=== PATIENT | male | born 1955 | race Caucasian/White ===

== ENCOUNTER 2019-05-28 18:30 | Emergency (ER) | payer MEDICARE ==
[2019-05-28] MEDS ORDERED: DUONEB 0.5-3 MG/3 ml Neb IH ONE ×4 (18:43→22:12)
[2019-05-28] MEDS ORDERED: Sodium Chloride 0.9% 1000 ML 1,000 ML IV SCH (18:45)
[2019-05-28] MEDS ORDERED: Sodium Chloride 0.9% 1000 ML 1,000 ML ONE (18:47)
--- NOTE | 2019-05-28 18:54 | ERPHSYRPT ---
- History of Present Illness Time Seen by Provider: 05/28/19 18:52 Source: patient Exam Limitations: no limitations Patient Subjective Stated Complaint: short of breath, cough, chills for about 1 week Triage Nursing Assessment: Pt walked into the ER and sits in an chair slumped over, short of breath, tachycardic, hypertensive, wheezes throughout, 79-80% on room air, placed on 4L and went to 99%, denies pain Physician History: short of breath, cough, chills for about 1 week Timing/Duration: week(s) (1 week) Severity of Dyspnea-Max: moderate Severity of Dyspnea-Current: moderate Possible Cause: frequent episodes Modifying Factors: Improves With: albuterol inhaler Associated Symptoms: cough, fever, wheezing, productive cough International travel in last 2 weeks: No Allergies/Adverse Reactions: No Known Drug Allergies Allergy (Verified 05/28/19 18:43) Home Medications: Albuterol Sulfate Mdi [Proair Hfa MDI] 1 inh PO UD 05/28/19 [History] Fluticasone/Umeclidin/Vilanter [Trelegy Ellipta 100-62.5-25] 1 inh PO UD [History] Hydrocodone/Acetaminophen [Hydrocodone-Acetamin 10-325 mg] 1 tab PO QID [History] Megestrol Acetate [Megace Es] 625 mg PO DAILY 05/28/19 [History] Metoprolol Tartrate 50 mg [Lopressor 50 MG] 50 mg PO DAILY 05/28/19 [ History] Hx Tetanus, Diphtheria Vaccination/Date Given: No Hx Influenza Vaccination/Date Given: No Hx Pneumococcal Vaccination/Date Given: No Immunizations Up to Date: No - Review of Systems Constitutional: No Fever, No Chills Eyes: No Symptoms Ears, Nose, & Throat: No Symptoms Respiratory: Cough, Dyspnea, Dyspnea on Exertion (REN), Wheezing Cardiac: No Chest Pain, No Edema, No Syncope Abdominal/Gastrointestinal: No Abdominal Pain, No Nausea, No Vomiting, No Diarrhea Genitourinary Symptoms: No Dysuria Musculoskeletal: No Back Pain, No Neck Pain Skin: No Rash Neurological: No Dizziness, No Focal Weakness, No Sensory Changes Psychological: No Symptoms Endocrine: No Symptoms All Other Systems: Reviewed and Negative - Past Medical History Cardiac History: Hypertension Respiratory History: COPD, Pneumonia Other Medical History: carpal tunnel - Past Surgical History Past Surgical History: Yes Other Surgical History: carpal tunnel - Social History Smoking Status: Current every day smoker How long have you smoked: 55 years Exposure to second hand smoke: Yes Drug Use: none Patient Lives Alone: No - Nursing Vital Signs Nursing Vital Signs: Initial Vital Signs Pulse Rate 126 H 05/28/19 18:31 Respiratory Rate 20 05/28/19 18:31 Blood Pressure 207/130 05/28/19 18:31 O2 Sat by Pulse Oximetry 80 L 05/28/19 18:31 Pain Scale Pain Intensity 0 - Physical Exam General Appearance: moderate distress, alert Eye Exam: PERRL/EOMI Neck Exam: normal inspection, supple Respiratory Exam: diminished breath sounds, crackles/rales, rhonchi, wheezing Cardiovascular/Chest Exam: normal heart sounds, regular rate/rhythm Abdominal/Gastrointestinal Exam: soft, No tenderness, No distention, No mass Extremity Exam: non-tender, normal range of motion, normal inspection, no calf tenderness, no pedal edema Neurologic Exam: alert, oriented x 3, cooperative, senior microsoft consultant II-XII nml as tested, sensation nml, No motor deficits Skin Exam: normal color, warm, No dry SpO2 Interpretation: hypoxic SpO2: 80 O2 Delivery: Non-rebreather - Course Nursing assessment & vital signs reviewed: Yes - Radiology Exams Chest X-ray Interpretation: Reviewed by me (severe COPD changes) Ordered Tests: Active Orders 24 hr Category Date Time Status Olericulture Teacher STAT Care 05/28/19 18:46 Active EKG-ER Only STAT Care 05/28/19 18:46 Active IV Insertion STAT Care 05/28/19 18:46 Active Oxygen-ED Only Nasal Cannula 3 lpm Care 05/28/19 18:44 Active CHEST 1 VIEW (PORTABLE) Stat Exams 05/28/19 18:44 Completed CBC W DIFF Stat Lab 05/28/19 19:04 Completed CMP Stat Lab 05/28/19 19:04 Completed Manual Differential NC Stat Lab 05/28/19 19:04 Completed NT PRO BNP Stat Lab 05/28/19 19:04 Completed Respiratory Therapy Assessment DAILY RT 05/28/19 18:49 Completed Medication Summary Discontinued Medications Generic Name Dose Route Start Last Admin Trade Name Freq PRN Reason Stop Dose Admin Albuterol/Ipratropium Confirm 05/28/19 18:43 Duoneb 0.5-3 Mg/3 Ml Neb Administered 05/28/19 18:44 Dose 3 ml IH .STK-MED ONE Albuterol/Ipratropium 3 ml 05/28/19 18:44 05/28/19 18:48 Duoneb 0.5-3 Mg/3 Ml Neb IH 05/28/19 18:45 3 ml STAT ONE Administration Albuterol/Ipratropium 6 ml 05/28/19 22:09 05/28/19 22:19 Duoneb 0.5-3 Mg/3 Ml Neb IH 05/28/19 22:10 6 ml STAT ONE Administration Albuterol/Ipratropium Confirm 05/28/19 22:12 Duoneb 0.5-3 Mg/3 Ml Neb Administered 05/28/19 22:13 Dose 6 ml IH .STK-MED ONE Diltiazem HCl 10 mg 05/28/19 18:55 05/28/19 19:00 Cardizem Iv 50 Mg/10 Ml IV 05/28/19 18:56 10 mg STAT ONE Administration Diltiazem HCl Confirm 05/28/19 18:58 Cardizem Iv 50 Mg/10 Ml Administered 05/28/19 18:59 Dose 50 mg IV .STK-MED ONE Sodium Chloride 1,000 mls @ 50 mls/hr 05/28/19 18:45 05/28/19 18:50 Sodium Chloride 0.9% 1000 Ml IV 06/27/19 18:44 50 mls/hr .Q20H HEBER Administration Ceftriaxone Sodium/Dextrose 1 g in 50 mls @ 100 mls/hr 05/28/19 19:15 19:58 Rocephin 1 Gm-D5w 50 Ml Bag IV 05/28/19 19:44 Infused STAT STA Infusion Azithromycin 500 mg in 250 mls @ 250 mls/hr 05/28/19 19:15 05/28/19 20:29 Zithromax 500 Mg/ 250 Ml Nacl Premix IV 05/28/19 20:14 Infused STAT STA Infusion Azithromycin Confirm 05/28/19 19:21 Zithromax 500 Mg/ 250 Ml Nacl Premix Administered 05/28/19 19:22 Dose 500 mg in 250 mls @ ud IV .STK-MED ONE Ceftriaxone Sodium/Dextrose Confirm 05/28/19 19:21 Rocephin 1 Gm-D5w 50 Ml Bag Administered 05/28/19 19:22 Dose 1 g in 50 mls @ ud IV .STK-MED ONE Sodium Chloride Confirm 05/28/19 18:47 Sodium Chloride 0.9% 1000 Ml Administered 05/28/19 18:48 Dose 1,000 mls @ ud .ROUTE .STK-MED ONE Methylprednisolone Sodium Succinate 125 mg 05/28/19 19:15 05/28/19 19:28 Solu-Medrol 125 Mg IV 05/28/19 19:16 125 mg STAT ONE Administration Methylprednisolone Sodium Succinate Confirm 05/28/19 19:21 Solu-Medrol 125 Mg Administered 05/28/19 19:22 Dose 125 mg .ROUTE .STK-MED ONE Lab/Rad Data: Laboratory Result Diagrams 05/28/19 19:04 05/28/19 19:04 Laboratory Results 05/28/19 05/28/19 05/28/19 Range/Units Unknown 19:04 19:04 WBC 8.4 (4.0-10.5) K/mm3 RBC 5.43 (4.1-5.6) M/mm3 Hgb 17.7 (12.5-18.0) gm/dl Hct 53.5 H (42-50) % MCV 98.5 (78-100) fl MCH 32.6 H (26-32) pg MCHC 33.1 (32-36) g/dl RDW 14.9 H (11.5-14.0) % Plt Count 242 (150-450) K/mm3 MPV 9.4 (7.5-11.0) fl Segmented Neutrophils 60 (36.-66.) % Lymphocytes (Manual) 38 (24-44) % Monocytes (Manual) 2 (0.0-12.0) % Toxic Granulation RARE Platelet Estimate NORMAL (NORMAL) RBC Morphology NORMAL Sodium 139 (137-145) mmol/L Potassium 3.9 (3.5-5.1) mmol/L Chloride 100 (98-107) mmol/L Carbon Dioxide 31 H (22-30) mmol/L Anion Gap 12.2 (5-15) MEQ/L BUN 22 H (9-20) mg/dL Creatinine 0.70 (0.66-1.25) mg/dL Estimated GFR > 60.0 ML/MIN Glucose 126 H (74-106) mg/dL Calcium 9.8 (8.4-10.2) mg/dL Total Bilirubin 0.40 (0.2-1.3) mg/dL AST 35 (17-59) U/L ALT 27 (0-50) U/L Alkaline Phosphatase 77 (38-126) U/L NT-Pro-B Natriuret Pep 180 (0-900) pg/mL Serum Total Protein 8.5 H (6.3-8.2) g/dL Albumin 4.5 (3.5-5.0) g/dL Influenza Type A Ag NEGATIVE (NEGATIVE) Influenza Type B Ag NEGATIVE (NEGATIVE) RSV (PCR) POSITIVE (Negative) - Progress Progress: improved Air Movement: fair Progress Note: 05/28/19 20:45 Patient is moderate to severe hypoxic on room air. Patient oxygen saturation is in low 70s. After Oxymizer 35%. His oxygen saturation 84%. Patient does not want to stay in hospital, but he agreed that he will use his oxygen at home as well as he will use nebulizer. We will make an arrangements for home oxygen 3 L nasal cannula as well as nebulizer treatment with DuoNeb nebulizer every 6 hours. Blood Culture(s) Obtained: No Antibiotics given: Yes Counseled pt/family regarding: lab results, diagnosis, need for follow-up, rad results, smoking cessation - Departure Departure Disposition: Home (with home oxygen) Clinical Impression: Hypoxemia requiring supplemental oxygen, COPD with hypoxia, Chronic respiratory failure with hypoxia and hypercapnia, RSV bronchitis, Acute exacerbation of chronic obstructive airways disease Condition: Stable Critical Care Time: Yes Critical Care Time(excluding separately billable procedures): Critical 30-74 mins Referrals: KEN HURLEY [Primary Care Provider] - Follow Up with PCP/3 days Instructions: Chronic Obstructive Pulmonary Disease Additional Instructions: Discharge/Care Plan KULDIP COVARRUBIAS was seen on 05/29/19 in the Emergency Room. The patient was counseled regarding Diagnosis,Lab results, Imaging studies, need for follow up and when to return to the Emergency Room. Prescriptions given: Discharge Note I have spoken with the patient and/or caregivers. I have explained the patient' s condition, diagnosis and treatment plan based on the information available to me at this time. I have answered the patient's and/or caregiver's questions and addressed any concerns. The patient and/or caregivers have as good understanding of the patient's diagnosis, condition and treatment plan as can be expected at this point. The vital signs have been stable. The patient's condition is stable and appropriate for discharge from the emergency department. The patient will pursue further outpatient evaluation with the primary care physician or other designated or consulting physician as outlined in the discharge instructions. The patient and/or caregivers are agreeable to this plan of care and follow-up instructions have been explained in detail. The patient and/or caregivers have received these instruction. The patient/and or caregivers are aware that any significant change in condition or worsening of symptoms should prompt an immediate return to this or the closest emergency department or call 911. KULDIP COVARRUBIAS was seen on 05/29/19 n the Emergency Room. At that time you were treated for an emergent condition, during your visit Laboratory, Radiology and/ or other procedures may have been ordered. It is very important that you follow- up with your Primary Care Physician KEN HURLEY within the next 24-48 hours to review your Emergency Room visit and the final results of testing that was ordered. Some test results such as Urine Cultures, Blood Cultures, and other cultures if ordered will not be finalized for 24-48 hours. If you do not have a Primary Care Provider please call the medical records department at [phone] ext [phone] to obtain a copy of your results or you may sign into our patient portal to obtain these results by visiting us @ [email or web address] and completing the following steps: 1. Click on the Patient Portal link 2. Click the Patient Self Enrollment Link to complete the enrollment form and entering your 3. Once the enrollment form is completed you will receive an email with a temporary ID and password at the email address you provided. 4. Next choose a user name and password. Your user name must be at least 4 characters long and your password must be at least 4 characters long. 5. Choose a security question from the list and provide your answer to the question. If you already have signed into the Health Portal you may access your Health Care Information 15/12 by the following steps: 1. Login to our website @ [email or web address] 2. Enter your original user name and password. FAQS [facility] Health Portal is an online tool that contains your Lab Results, Radiology Reports, Visit History, Discharge Instructions and Health Summary Lab and Radiology Results will not be available for 72 hours on the portal. The Portal is a secure site, passwords are encryted and URLs are re-written so they cannot be copied and pasted. You and authorized family members are the only ones who can access your Portal. Also there is a timeout feature that protects your information if you leave the Portal page open. If you have technical difficulty please use the Contact Us link on the page this will allow you to submit any questions you have regarding the Portal or you may contact the Medical Record Department at [phone]. Prescriptions: Albuterol/Ipratropium 3ml Neb* [DUONEB 0.5-3 MG/3 ml Neb] 3 ml IH QID #120 ampul.neb Cephalexin Mh 500 mg [Keflex 500 mg] 500 mg PO Q6H #40 capsule Methylprednisolone Packet [Medrol Dosepack] 4 mg PO UD #30 packet
[2019-05-28] MEDS ORDERED: Cardizem IV 50 MG/10 ML IV ONE ×2 (18:55→18:58)
[2019-05-28] MEDS ORDERED: Zithromax 500 MG/ 250 ML NaCl Premix 500 MG/250 ML IVPB IV STA (19:15)
[2019-05-28] MEDS ORDERED: solu-MEDROL 125 MG IV ONE (19:15)
[2019-05-28] MEDS ORDERED: ROCEPHIN 1 Gm-D5w 50 ml Bag** 1 G/50 ML IVPB IV STA (19:15)
[2019-05-28] MEDS ORDERED: Zithromax 500 MG/ 250 ML NaCl Premix 500 MG/250 ML IVPB IV ONE (19:21)
[2019-05-28] MEDS ORDERED: ROCEPHIN 1 Gm-D5w 50 ml Bag** 1 G/50 ML IVPB IV ONE (19:21)
[2019-05-28] MEDS ORDERED: solu-MEDROL 125 MG ONE (19:21)
[2019-05-28 19:30] LABS: Hematocrit 53.5 % (42-50); Hemoglobin 17.7 gm/dl (12.5-18.0); Mean Cell Volume 98.5 fl (78-100); Mean Corpuscular Hemoglobin 32.6 pg (26-32); Mean Corpuscular Hgb Concent. 33.1 g/dl (32-36); Mean Platelet Volume 9.4 fl (7.5-11.0); Platelet Count 242 K/mm3 (150-450); Red Blood Count 5.43 M/mm3 (4.1-5.6); Red Cell Distribution Width 14.9 % (11.5-14.0); White Blood Count 8.4 K/mm3 (4.0-10.5)
[2019-05-28 19:43] LABS: ALBUMIN 4.5 g/dL (3.5-5.0); ALKALINE PHOSPHATASE 77 U/L (38-126); ANION GAP 12.2 MEQ/L (5-15); BLOOD UREA NITROGEN 22 mg/dL (9-20); CHLORIDE 100 mmol/L (98-107); Calcium 9.8 mg/dL (8.4-10.2); Carbon Dioxide 31 mmol/L (22-30); Glucose 126 mg/dL (74-106); NT PRO BNP 180 pg/mL (0-900); Potassium 3.9 mmol/L (3.5-5.1); SGOT/AST 35 U/L (17-59); SGPT/ALT 27 U/L (0-50); SODIUM 139 mmol/L (137-145); Total Protein 8.5 g/dL (6.3-8.2)
--- NOTE | 2019-05-28 20:12 | XRAY ---
Indication: Cough and short of breath. COPD. Comparison: None Portable chest demonstrates COPD with a few tiny calcified granulomas. No focal infiltrate, consolidation, or large effusion. Heart and mediastinal structures within normal limits. Bony thorax intact with mild osteopenia and degenerative changes. Impression: COPD and evidence for old granulomatous disease. Negative for acute pneumonic process or CHF.
[2019-05-28 20:49] LABS: INFLUENZA A NEGATIVE (NEGATIVE); INFLUENZA B NEGATIVE (NEGATIVE); RESPIRATORY SYNCTIAL VIRUS POSITIVE (Negative)
[2019-05-28 21:15] VITALS: BP 153/107; PULSE 98
[2019-05-28 22:50] LABS: Lymphocytes 38 % (24-44); Monocyte 2 % (0.0-12.0); Neutrophils 60 % (36.-66.); Platelet Estimate NORMAL (NORMAL); Total Cells Counted 100; Toxic Granulation RARE
[2019-05-29 09:03] VITALS: O2SAT 80
== END 2019-05-28 21:35 | disposition home or self-care (01) ==
LOC: ED 18:30
DX: R09.02 Hypoxemia (principal); Z99.81 Dependence on supplemental oxygen; J44.9 Chronic obstructive pulmonary disease, unspecified; J96.12 Chronic respiratory failure with hypercapnia; J96.11 Chronic respiratory failure with hypoxia; J20.5 Acute bronchitis due to respiratory syncytial virus
CPT/HCPCS: 36000; 36415; 71045; 80053; 83880; 85025; 87631; 93005; 93041; 94640; 96365; 96368; 96374; 96375; 99284; 99291; J0456; J0696; J2930; A9270-GY

== ENCOUNTER 2021-03-12 09:55 | Day surgery (SDC) | payer MEDICARE ==
[~2021-03-12 09:55] MED LIST: Ak-Dilate OPHTHALMIC*** 1.065 ML, Cyclogyl 1% OPHTH SOL 5 ML 1.065 ML, GATIFLOXACIN 0.5... OP ONE; BETADINE 5% OPHTHALMIC 30 ML OP ONE; Lactated Ringers 1,000 ML IV SCH; NON-FORMULARY ITEM OP ONE; TETRACAINE 0.5% STERI-UNIT SOL OP ONE; cefUROXime sodium 0.005 GM in Sodium Chloride Flush 30 ML*** 0.5 ML IJ SCH
[2021-03-12] MEDS ORDERED: Epinephrine Preservative Free 1 MG/ML IJ ONE (09:56)
[2021-03-12] MEDS ORDERED: LIDOCAINE HCL 1% 50 MG/5 ML VL PF IJ ONE (09:56)
[2021-03-12] MEDS ORDERED: Zofran 4 MG/2 ML VIAL IV PRN (11:00)
[2021-03-12] MEDS ORDERED: ACETAZOLAMIDE 250 MG TABLET PO ONE (11:00)
[2021-03-12] MEDS ORDERED: Lactated Ringers 1,000 ML IV ONE (11:42)
[2021-03-12] MEDS ORDERED: DIPRIVAN 200 MG/20 ML IV ONE (12:51)
[2021-03-12] MEDS ORDERED: Versed 2 MG/2 ML Injection ONE (12:51)
[2021-03-12] MEDS ORDERED: SUBLIMAZE 100 MCG/2 ML ONE (12:51)
[2021-03-12] MEDS ORDERED: ROBINUL ONE (12:52)
[2021-03-12 14:21] VITALS: BP 145/89; PULSE 78; O2SAT 97
== END 2021-03-12 14:35 | disposition home or self-care (01) ==
LOC: SDC 09:55
PROVIDERS: ATTEND Ophthalmology
DX: H25.811 Combined forms of age-related cataract, right eye (principal); Z79.899 Other long term (current) drug therapy
CPT/HCPCS: C1780; J0171; J2001; J2250; J2704; J3010; A9270-GY

== ENCOUNTER 2022-03-20 15:52 | Emergency (ER) | payer MEDICARE ==
[2022-03-20 17:25] LABS: INFLUENZA A NEGATIVE (NEGATIVE); INFLUENZA B NEGATIVE (NEGATIVE); RESPIRATORY SYNCTIAL VIRUS NEGATIVE (Negative); SARS-CoV-2 Xpert Express NEGATIVE (NEGATIVE)
[2022-03-20] MEDS ORDERED: DUONEB 0.5-3 MG/3 ml Neb IH ONE ×2 (18:21→18:25)
--- NOTE | 2022-03-20 18:27 | ERPHSYRPT ---
- History of Present Illness Source: patient Exam Limitations: no limitations Patient Subjective Stated Complaint: Patient came in c/o shortness of breath x 6 weeks. Stated that he was at Dr Hurley's office and oxygen was 72% on 4L. Triage Nursing Assessment: Patient A&Ox3, Skin is CDI PW some bruising noted on right forearm. Patient breathing is easy but tachypneic. Expiratory wheeze throughout with bilater crackles in the bases. Patient baseline o2 is 4L. Physician History: 67 yo wm who is 3L O2 dep at home presents from PCP office w low sats. Pt states that he has been having increasing dyspnea x 6 wks which is worse upon exertion. He denies worsening cough/fever/chest pain/N/V/D/melena/hematochezia. Pt still smokes 1ppd. Timing/Duration: other (6wks/worse today) Activities at Onset: rest Severity of Dyspnea-Max: severe Severity of Dyspnea-Current: moderate Possible Cause: frequent episodes Modifying Factors: Improves With: activity Associated Symptoms: denies symptoms Allergies/Adverse Reactions: No Known Drug Allergies Allergy (Verified 03/12/21 10:33) Home Medications: Albuterol Sulfate Mdi [Proair Hfa MDI] 1 inh PO Q4HPRN PRN 05/28/19 [History] Fluticasone/Umeclidin/Vilanter [Trelegy Ellipta 100-62.5-25] 1 inh PO UD 05/28/19 [History] Hydrocodone/Acetaminophen [Hydrocodone-Acetamin 10-325 mg] 1 tab PO QIDPRN PRN 05/28/19 [History] Rosuvastatin Calcium [Crestor] 5 mg PO DAILY 03/07/21 [History] Tamsulosin HCl 0.4 mg [Flomax 0.4 MG] 0.4 mg PO DAILY 03/07/21 [History] Tolterodine Tartrate [Tolterodine Tartrate ER] 2 mg PO DAILY 03/07/21 [History] Hx Tetanus, Diphtheria Vaccination/Date Given: No Hx Influenza Vaccination/Date Given: No Hx Pneumococcal Vaccination/Date Given: No Immunizations Up to Date: No Travel Risk - International Travel Have you traveled outside of the country in past 3 weeks: No - Coronavirus Screening Symptoms: Shortness of Breath Close contact with a COVID-19 positive Pt in past 14-21 Days: No - Vaccine Status Have you recieved a Covid-19 vaccination: Yes Line Supply: Moderna - Vaccination Dates Date of 2cond Vaccination (if applicable): 06/26/2020 - Review of Systems Constitutional: No Symptoms, Malaise, Weakness Eyes: No Symptoms Ears, Nose, & Throat: No Symptoms Respiratory: No Symptoms, Dyspnea, Dyspnea on Exertion (REN) Cardiac: No Symptoms Abdominal/Gastrointestinal: No Symptoms Genitourinary Symptoms: No Symptoms Musculoskeletal: No Symptoms Skin: No Symptoms Neurological: No Symptoms Psychological: No Symptoms Endocrine: No Symptoms Hematologic/Lymphatic: No Symptoms Immunological/Allergic: No Symptoms - Past Medical History Pertinent Past Medical History: Yes Neurological History: No Pertinent History ENT History: Cataracts Cardiac History: Hypertension Respiratory History: COPD, Lung Cancer, Pneumonia Endocrine Medical History: No Pertinent History Musculoskeletal History: No Pertinent History GI Medical History: No Pertinent History History: No Pertinent History Psycho-Social History: No Pertinent History Male Reproductive Disorders: No Pertinent History Other Medical History: carpal tunnel - Past Surgical History Past Surgical History: Yes Neuro Surgical History: No Pertinent History Cardiac: No Pertinent History Respiratory: No Pertinent History Gastrointestinal: No Pertinent History Genitourinary: Other Musculoskeletal: No Pertinent History Male Surgical History: No Pertinent History Other Surgical History: carpal tunnel, urolift with Dr. Velez at [facility] on 01/18/21 - Social History Smoking Status: Current every day smoker How long have you smoked: 60 years Exposure to second hand smoke: No Drug Use: none Patient Lives Alone: No - Nursing Vital Signs Nursing Vital Signs: Initial Vital Signs Temperature 98 F 03/20/22 15:52 Pulse Rate 108 H 03/20/22 15:52 Respiratory Rate 30 H 03/20/22 15:52 O2 Sat by Pulse Oximetry 87 L 03/20/22 15:52 Pain Scale Pain Intensity 0 Low sats/Tachy/Tachypneic - Physical Exam General Appearance: no apparent distress Eye Exam: PERRL/EOMI, eyes nml inspection Ears, Nose, Throat Exam: hearing grossly normal, normal ENT inspection, normal pharynx Neck Exam: normal inspection, non-tender, supple, full range of motion, No Brudzinski, No Kernig's, No meningismus, No carotid bruit, No JVD Respiratory Exam: prolonged expirations, wheezing (Scattered wheezes B) Cardiovascular/Chest Exam: tachycardia, No murmur Abdominal/Gastrointestinal Exam: soft, normal bowel sounds, No tenderness Extremity Exam: non-tender, normal range of motion, normal inspection, normal capillary refill, no calf tenderness, no pedal edema Peripheral Pulses Exam: carotid (R): 2+, carotid (L): 2+ Neurologic Exam: alert, oriented x 3, cooperative, instruction librarian II-XII nml as tested, normal mood/affect, nml cerebellar function, nml station & gait, sensation nml, No motor deficits, No sensory deficit Skin Exam: normal color, warm, dry, No rash Lymphatic Exam: No adenopathy SpO2 Interpretation: normal SpO2: 96 O2 Delivery: Room Air - Course Nursing assessment & vital signs reviewed: Yes EKG Interpreted by Me: RATE (NSR/Rate96/RBBB/LAFB/Prolonged QTc/Occ PVC/Flat Twaves) - Radiology Exams Chest X-ray Interpretation: Interpreted by me (COPD) Ordered Tests: Active Orders 24 hr Category Date Time Status AMA [Release AMA] OM.NOW Care 03/20/22 20:17 Completed EKG-ER Only STAT Care 03/20/22 18:20 Completed CHEST 1 VIEW (PORTABLE) Stat Exams 03/20/22 18:20 Taken CBC W DIFF Stat Lab 03/20/22 18:31 Completed CMP Stat Lab 03/20/22 18:31 Completed Lactic Acid Stat Lab 03/20/22 18:21 Completed NT PRO BNP Stat Lab 03/20/22 18:31 Completed PROTIME WITH INR Stat Lab 03/20/22 18:31 Completed PTT Stat Lab 03/20/22 18:31 Completed TROPONIN Q4H Lab 03/20/22 18:31 Completed Respiratory Therapy Assessment DAILY RT 03/20/22 18:34 Completed Medication Summary Discontinued Medications Generic Name Dose Route Start Last Admin Trade Name Freq PRN Reason Stop Dose Admin Albuterol/Ipratropium 3 ml 03/20/22 18:21 03/20/22 18:27 Ipratropium/Albuterol Sulfate 3 Ml Ampul.Neb IH 03/20/22 18:22 3 ml STAT ONE Administration Albuterol/Ipratropium Confirm 03/20/22 18:25 Ipratropium/Albuterol Sulfate 3 Ml Ampul.Neb Administered 03/20/22 18:26 Dose 3 ml IH .STK-MED ONE Methylprednisolone Sodium 0 mg 03/20/22 19:59 03/20/22 20:02 Succinate 125 mg/ Sterile IV 03/20/22 20:00 125 mg Water 2 ml STAT ONE Administration Sodium Chloride 1,000 mls @ 999 mls/hr 03/20/22 19:49 03/20/22 19:50 Sodium Chloride 0.9% 1000 Ml IV 03/20/22 20:49 999 mls/hr .Q1H1M STA Administration Sodium Chloride Confirm 03/20/22 19:48 Sodium Chloride 0.9% 1000 Ml Administered 03/20/22 19:49 Dose 1,000 mls @ ud .ROUTE .STK-MED ONE Methylprednisolone Sodium Succinate Confirm 03/20/22 20:01 Methylprednis Sod Succ 125 Mg/2 Ml Vial Administered 03/20/22 20:02 Dose 125 mg .ROUTE .STK-MED ONE Sterile Water Confirm 03/20/22 20:01 Water For Injection,Sterile 10 Ml Vial Administered 03/20/22 20:02 Dose 10 ml IJ .STK-MED ONE Lab/Rad Data: Laboratory Result Diagrams 03/20/22 18:31 03/20/22 18:31 Laboratory Results 03/20/22 03/20/22 03/20/22 Range/Units 18:31 18:31 18:31 WBC (4.0-10.5) x10^3/uL RBC (4.1-5.6) x10^6/uL Hgb (12.5-18.0) g/dL Hct (42-50) % MCV (78-100) fL MCH (26-32) pg MCHC (32-36) g/dL RDW (11.5-14.0) % Plt Count (150-450) x10^3/uL MPV (7.5-11.0) fL Gran % (36.0-66.0) % Immature Gran % (Auto) (0.00-0.4) % Nucleat RBC Rel Count (0.00-0.1) % Eos # (Auto) (0-0.5) x10^3/uL Immature Gran # (Auto) (0.00-0.03) x10^3u/L Absolute Lymphs (auto) (1.0-4.6) x10^3/uL Absolute Monos (auto) (0.0-1.3) x10^3/uL Absolute Nucleated RBC (0.00-0.01) x10^3u/L Lymphocytes % (24.0-44.0) % Monocytes % (0.0-12.0) % Eosinophils % (0.00-5.0) % Basophils % (0.0-0.4) % Absolute Granulocytes (1.4-6.9) x10^3/uL Basophils # (0-0.4) x10^3/uL PT 10.5 (9.4-12.5) SECONDS INR 0.99 (0.8-3.0) APTT 22.5 L (25.1-36.5) SECONDS Sodium 141 (137-145) mmol/L Potassium 4.2 (3.5-5.1) mmol/L Chloride 102 (98-107) mmol/L Carbon Dioxide 32 H (22-30) mmol/L Anion Gap 11.8 (5-15) MEQ/L BUN 20 (9-20) mg/dL Creatinine 0.85 (0.66-1.25) mg/dL Estimated GFR > 60.0 ML/MIN Glucose 138 H (74-106) mg/dL Lactic Acid (0.4-2.0) Calcium 9.4 (8.4-10.2) mg/dL Total Bilirubin 0.70 (0.2-1.3) mg/dL AST 27 (17-59) U/L ALT 23 (0-50) U/L Alkaline Phosphatase 61 (38-126) U/L Troponin I < 0.012 (0.000-0.034) ng/mL NT-Pro-B Natriuret Pep 453 (0-900) pg/mL Serum Total Protein 8.2 (6.3-8.2) g/dL Albumin 4.8 (3.5-5.0) g/dL Influenza Type A Ag (NEGATIVE) Influenza Type B Ag (NEGATIVE) RSV (PCR) (Negative) SARS-CoV-2 (PCR) (NEGATIVE) 03/20/22 03/20/22 03/20/22 Range/Units 18:31 18:21 16:00 WBC 7.7 (4.0-10.5) x10^3/uL RBC 4.95 (4.1-5.6) x10^6/uL Hgb 16.3 (12.5-18.0) g/dL Hct 50.4 H (42-50) % MCV 101.8 H (78-100) fL MCH 32.9 H (26-32) pg MCHC 32.3 (32-36) g/dL RDW 13.4 (11.5-14.0) % Plt Count 327 (150-450) x10^3/uL MPV 9.4 (7.5-11.0) fL Gran % 88.8 H (36.0-66.0) % Immature Gran % (Auto) 0.5 H (0.00-0.4) % Nucleat RBC Rel Count 0.0 (0.00-0.1) % Eos # (Auto) 0 (0-0.5) x10^3/uL Immature Gran # (Auto) 0.04 H (0.00-0.03) x10^3u/L Absolute Lymphs (auto) 0.56 L (1.0-4.6) x10^3/uL Absolute Monos (auto) 0.26 (0.0-1.3) x10^3/uL Absolute Nucleated RBC 0.00 (0.00-0.01) x10^3u/L Lymphocytes % 7.3 L (24.0-44.0) % Monocytes % 3.4 (0.0-12.0) % Eosinophils % 0.0 (0.00-5.0) % Basophils % 0.0 (0.0-0.4) % Absolute Granulocytes 6.80 (1.4-6.9) x10^3/uL Basophils # 0 (0-0.4) x10^3/uL PT (9.4-12.5) SECONDS INR (0.8-3.0) APTT (25.1-36.5) SECONDS Sodium (137-145) mmol/L Potassium (3.5-5.1) mmol/L Chloride (98-107) mmol/L Carbon Dioxide (22-30) mmol/L Anion Gap (5-15) MEQ/L BUN (9-20) mg/dL Creatinine (0.66-1.25) mg/dL Estimated GFR ML/MIN Glucose (74-106) mg/dL Lactic Acid 2.5 H (0.4-2.0) Calcium (8.4-10.2) mg/dL Total Bilirubin (0.2-1.3) mg/dL AST (17-59) U/L ALT (0-50) U/L Alkaline Phosphatase (38-126) U/L Troponin I (0.000-0.034) ng/mL NT-Pro-B Natriuret Pep (0-900) pg/mL Serum Total Protein (6.3-8.2) g/dL Albumin (3.5-5.0) g/dL Influenza Type A Ag NEGATIVE (NEGATIVE) Influenza Type B Ag NEGATIVE (NEGATIVE) RSV (PCR) NEGATIVE (Negative) SARS-CoV-2 (PCR) NEGATIVE (NEGATIVE) - Progress Progress: improved Progress Note: 03/20/22 20:00 Pt w Duoneb x 1 w mild improvement 1L NS bolus 125mg Iv Solumedrol Pt refuses admit at this time. Risks explained to pt including respiratory failure/ 03/20/22 21:24 Pt still requiring 5.5L O2 NC instead of his usual 3L O2 NC before leaving AMA Counseled pt/family regarding: lab results, diagnosis, need for follow-up, rad results - Departure Departure Disposition: AMA Clinical Impression: Acute exacerbation of chronic obstructive airways disease Condition: Stable Critical Care Time: Yes Critical Care Time(excluding separately billable procedures): Critical 30-74 mins Referrals: KEN HURLEY [Primary Care Provider] - Follow up/PCP as directed Instructions: Chronic Obstructive Pulmonary Disease, Shortness of Breath (Dyspnea) (DC), Exacerbation of COPD (DC) Additional Instructions: Quit smoking Follow up with your family MD and/or tool and die designer Return to ER as needed Prescriptions: Prednisone 10 mg [Deltasone 10 mg] 10 mg PO BID 5 Days #10 tablet Doxycycline Monohydrate 100 mg PO BID #14 cap
[2022-03-20 18:34] LABS: Basophil (Absolute #) 0 x10^3/uL (0-0.4); Eosinophil (Absolute #) 0 x10^3/uL (0-0.5); Hematocrit 50.4 % (42-50); Hemoglobin 16.3 g/dL (12.5-18.0); Lymphocyte (Absolute #) 0.56 x10^3/uL (1.0-4.6); Lymphocytes % 7.3 % (24.0-44.0); Mean Cell Volume 101.8 fL (78-100); Mean Corpuscular Hemoglobin 32.9 pg (26-32); Mean Corpuscular Hgb Concent. 32.3 g/dL (32-36); Mean Platelet Volume 9.4 fL (7.5-11.0); Monocyte (Absolute #) 0.26 x10^3/uL (0.0-1.3); Monocytes % 3.4 % (0.0-12.0); Neutrophil % 88.8 % (36.0-66.0); Platelet Count 327 x10^3/uL (150-450); Red Blood Count 4.95 x10^6/uL (4.1-5.6); Red Cell Distribution Width 13.4 % (11.5-14.0); White Blood Count 7.7 x10^3/uL (4.0-10.5)
[2022-03-20 18:42] LABS: ALBUMIN 4.8 g/dL (3.5-5.0); ALKALINE PHOSPHATASE 61 U/L (38-126); ANION GAP 11.8 MEQ/L (5-15); BLOOD UREA NITROGEN 20 mg/dL (9-20); CHLORIDE 102 mmol/L (98-107); Calcium 9.4 mg/dL (8.4-10.2); Carbon Dioxide 32 mmol/L (22-30); Creatinine 1 0.85 mg/dL (0.66-1.25); EST GLOMERULAR FILTRATION RATE > 60.0 ML/MIN; Glucose 138 mg/dL (74-106); INR 0.99 (0.8-3.0); NT PRO BNP 453 pg/mL (0-900); PROTIME 10.5 SECONDS (9.4-12.5); PTT 22.5 SECONDS (25.1-36.5); Potassium 4.2 mmol/L (3.5-5.1); SGOT/AST 27 U/L (17-59); SGPT/ALT 23 U/L (0-50); SODIUM 141 mmol/L (137-145); Total Protein 8.2 g/dL (6.3-8.2)
[2022-03-20] MEDS ORDERED: Sodium Chloride 0.9% 1000 ML 1,000 ML ONE (19:48)
[2022-03-20] MEDS ORDERED: Sodium Chloride 0.9% 1000 ML 1,000 ML IV STA (19:49)
[2022-03-20 19:58] VITALS: O2SAT 96
[2022-03-20] MEDS ORDERED: solu-MEDROL 125 MG, Sterile H2O 10 ml 2 ML IV ONE ×2 (19:59)
[2022-03-20] MEDS ORDERED: solu-MEDROL ONE (20:01)
[2022-03-20] MEDS ORDERED: Sterile H2O 10 ml IJ ONE (20:01)
[2022-03-20 20:12] VITALS: BP 151/92; PULSE 99
[2022-03-20 23:00] LABS: Slide Review 1 YES
--- NOTE | 2022-03-21 08:59 | XRAY ---
Indication: Cough and short of breath. History COPD and lung cancer. Comparison: January 24, 2022 Portable chest unchanged again demonstrating COPD and a few tiny calcified granulomas. Heart not enlarged. Bony thorax intact again with osteopenia and degenerative changes. No new/acute findings.
== END 2022-03-20 20:16 | disposition left against medical advice (07) ==
LOC: ED 15:52
DX: J44.1 Chronic obstructive pulmonary disease with (acute) exacerbation (principal); Z99.81 Dependence on supplemental oxygen; Z72.0 Tobacco use; I10 Essential (primary) hypertension; Z79.52 Long term (current) use of systemic steroids; Z79.899 Other long term (current) drug therapy; Z20.828 Contact with and (suspected) exposure to other viral communicable diseases
CPT/HCPCS: 0241U; 36415; 71045; 80053; 83605; 83880; 84484; 85025; 85610; 85730; 93005; 94640; 96374; 99284; J2930; A9270-GY